=== PATIENT | male | born 1940 | race Caucasian/White ===

== ENCOUNTER 2019-04-22 14:23 | Emergency (ER) | payer MEDICARE ==
[2019-04-22 14:47] LABS: ABS Eosinophils 0.2 10^3/ul (0-0.6); ABS Lymphocytes 0.9 10^3/ul (1.0-4.8); ABS Monocytes 0.6 10^3/ul (0-0.8); ABS Neutrophils 4.5 10^3/ul (1.5-7.7); Eosinophil % 3.6 %; Hematocrit 43 % (42-52); Lymphocyte % 14.5 %; Mean Corpuscular HGB Conc 35 g/dL (31-36); Mean Corpuscular Hemoglobin 33 pg (27-31); Mean Corpuscular Volume 95 fL (80-94); Mean Platelet Volume 8.8 fL (7.4-10.4); Platelet Count 178 10^3/uL (150-450); Red Blood Count 4.58 10^6 /uL (4.18-5.48); Red Cell Distribution Width 13 % (10-15); White Blood Count 6.2 10^3/uL (3.5-10.8)
[2019-04-22 15:02] LABS: Troponin I 0.01 ng/mL (<0.04)
[2019-04-22 15:15] LABS: Albumin 3.9 g/dL (3.2-5.2); Albumin/Globulin Ratio 1.6 (1-3); BUN/Creatinine Ratio 15.5 (8-20); Calcium 9.2 mg/dL (8.6-10.3); EGFR African American 64.7 (>60); EGFR Non-African American 53.5 (>60); Globulin 2.5 g/dL (2-4); Potassium 4.3 mmol/L (3.5-5.0); Total Bilirubin 0.5 mg/dL (0.2-1.0); Total Protein 6.4 g/dL (6.4-8.9)
--- NOTE | 2019-04-22 15:21 | ED ---
HPI Chest Pain - HPI Summary HPI Summary: 79 year old M presenting to [facility] accompanied by complains of intermittent episodes of occasional chest pain radiating across bilateral shoulders and to right elbow lasting 10-15 minutes. Patient states he had 2 episodes yesterday and 3 episodes today. Patient has no chest pain right now. The patient rates the pain 0/10 currently in severity. Patient states he "feels like a weakness in the shoulder muscles." Symptoms aggravated by nothing. Symptoms alleviated by nothing. Patient denies shortness of breath and bilateral leg pain. Patient has cardiac hx. Hx SC but patient states that his current symptoms are not similar to his previous SC. He has had several appointments in the last 6 months to have his symptoms checked. Last stress test was 5 years ago. Takes aspirin. - History of Current Complaint Chief Complaint: EDChestPainROMI Time Seen by Provider: 04/22/19 15:14 Hx Obtained From: Patient Onset/Duration: Still Present Timing: Intermittent, Lasting Minutes - 10-15 Current Severity: None Pain Intensity: 0 Pain Scale Used: 0-10 Numeric Chest Pain Radiates: Yes Chest Pain Radiates To:: Shoulder, Arm - right Aggravating Factor(s): Nothing Alleviating Factor(s): Nothing Associated Signs and Symptoms: Positive: Negative - leg pain. Negative: Shortness of Breath - Allergy/Home Medications Allergies/Adverse Reactions: Allergies Allergy/AdvReac Type Severity Reaction Status Date / Time No Known Allergies Allergy Verified 05/16/16 12:49 Home Medications: Home Medications Aspirin 81 mg CHEW TAB* 81 mg PO DAILY 04/22/19 [History Confirmed 04/22/19] Benazepril (NF) [Lotensin (NF)] 10 mg PO DAILY 04/22/19 [History Confirmed 04/22] Cholecalciferol (Vitamin D3) [Vitamin D3] 2,000 unit PO DAILY 04/22/19 [History Confirmed 04/22/19] Metoprolol Succinate XL TAB* [Toprol XL TAB*] 25 mg PO DAILY 04/22/19 [History Confirmed 04/22/19] Omeprazole CAP (NF) [Prilosec CAP* 20 MG] 20 mg PO DAILY 04/22/19 [History Confirmed 04/22/19] Rosuvastatin (NF) [Crestor (NF)] 10 mg PO DAILY 04/22/19 [History Confirmed ] Rosuvastatin (NF) [Crestor (NF)] 25 mg PO DAILY 04/22/19 [History Confirmed ] National Institutes Of Health - NIH Scale Level of Consciousness: Alert/Keenly Responsive Ask Patient the Month and His/Her Age: Both Correct Ask Pt to Open/Close Eyes and Filter Filler/Release Non-Paretic Hand: Both Correctly Best Gaze (Only Horizontal Eye Movement): Normal Visual Field Testing: No Visual Loss Facial Paresis-Pt to Smile & Close Eyes or Grimace Symmetry: Normal/Symmetrical Motor Function - Right Arm: No Drift-Holds 10 Seconds Motor Function - Left Arm: No Drift-Holds 10 Seconds Motor Function - Right Leg: No Drift-Holds 10 Seconds Motor Function - Left Leg: No Drift-Holds 10 Seconds Limb Ataxia-Must be out of Proportion to Weakness Present: Absent Sensory (Use Pinprick to Test Arms/Legs/Trunk/Face): Normal Best Language (Describe Picture, Name Items): No Aphasia Dysarthria (Read Several Words): Normal Extinction and Inattention: No Abnormality Total Score: 0 PMH/Surg Hx/FS Hx/Imm Hx Cardiovascular History: Reports: Hx Angioplasty, Hx Myocardial Infarction Sensory History: Reports: Hx Contacts or Glasses Opthamlomology History: Reports: Hx Contacts or Glasses - Cancer History Cancer Type, Location and Year: kidney cancer - Surgical History Surgery Procedure, Year, and Place: partial nephrectomy in 2013 for kidney cancer. knee surgery. stents Infectious Disease History: No Infectious Disease History: Denies: Traveled Outside the [place] in Last 30 Days - Family History Known Family History: Positive: Diabetes - Social History Alcohol Use: None Hx Substance Use: No Substance Use Type: Reports: None Hx Tobacco Use: No Smoking Status (MU): Never Smoked Tobacco Review of Systems Positive: Chest Pain Negative: Shortness Of Breath Musculoskeletal: Negative - bilateral leg pain All Other Systems Reviewed And Are Negative: Yes Physical Exam - Summary Physical Exam Summary: VITAL SIGNS: Reviewed. GENERAL: Patient is a well-developed and nourished MALE who is lying comfortable in the stretcher. Patient is not in any acute respiratory distress. HEAD AND FACE: No signs of trauma. No ecchymosis, hematomas or skull depressions. No sinus tenderness. EYES: PERRLA, EOMI x 2, No injected conjunctiva, no nystagmus. EARS: Hearing grossly intact. Ear canals and tympanic membranes are within normal limits. MOUTH: Oropharynx within normal limits. NECK: Supple, trachea is midline, no adenopathy, no JVD, no carotid bruit, no c- spine tenderness, neck with full ROM. CHEST: Symmetric, no tenderness at palpation. LUNGS: Clear to auscultation bilaterally. No wheezing or crackles. CVS: Regular rate and rhythm, S1 and S2 present, no murmurs or gallops appreciated. ABDOMEN: Soft, non-tender. No signs of distention. No rebound, no guarding, and no masses palpated. Bowel sounds are normal. EXTREMITIES: FROM in all major joints, no edema, no cyanosis or clubbing. NEURO: Alert and oriented x 3. No acute neurological deficits. Speech is normal and follows commands. SKIN: Dry and warm. NIH: 0 GCS: 15 Triage Information Reviewed: Yes Vital Signs On Initial Exam: Initial Vitals Temp Pulse Resp BP Pulse Ox 97.1 F 65 20 144/78 99 04/22/19 14:31 04/22/19 14:31 04/22/19 14:31 04/22/19 14:31 04/22/19 14:31 Vital Signs Reviewed: Yes Diagnostics - Vital Signs Vital Signs Temp Pulse Resp BP Pulse Ox 04/22/19 14:31 97.1 F 65 20 144/78 99 - Laboratory Lab Results: Lab Results 04/22/19 04/22/19 04/22/19 Range/Units 14:33 14:33 14:33 WBC 6.2 (3.5-10.8) 10^3/uL RBC 4.58 (4.18-5.48) 10^6 /uL Hgb 15.0 (14.0-18.0) g/dL Hct 43 (42-52) % MCV 95 H (80-94) fL MCH 33 H (27-31) pg MCHC 35 (31-36) g/dL RDW 13 (10-15) % Plt Count 178 (150-450) 10^3/uL MPV 8.8 (7.4-10.4) fL Neut % (Auto) 72.1 % Lymph % (Auto) 14.5 % [place] % (Auto) 9.3 % Eos % (Auto) 3.6 % Baso % (Auto) 0.5 % Absolute Neuts (auto) 4.5 (1.5-7.7) 10^3/ul Absolute Lymphs (auto) 0.9 L (1.0-4.8) 10^3/ul Absolute Monos (auto) 0.6 (0-0.8) 10^3/ul Absolute Eos (auto) 0.2 (0-0.6) 10^3/ul Absolute Basos (auto) 0.0 (0-0.2) 10^3/ul Absolute Nucleated RBC 0.0 10^3/ul Nucleated RBC % 0.0 INR (Anticoag Therapy) 1.00 (0.82-1.09) Sodium 135 (135-145) mmol/L Potassium 4.3 (3.5-5.0) mmol/L Chloride 104 (101-111) mmol/L Carbon Dioxide 25 (22-32) mmol/L Anion Gap 6 (2-11) mmol/L BUN 20 (6-24) mg/dL Creatinine 1.29 H (0.67-1.17) mg/dL Est GFR ( Amer) 64.7 (>60) Est GFR (Non-Af Amer) 53.5 (>60) BUN/Creatinine Ratio 15.5 (8-20) Glucose 108 H (70-100) mg/dL Calcium 9.2 (8.6-10.3) mg/dL Total Bilirubin 0.50 (0.2-1.0) mg/dL AST 19 (13-39) U/L ALT 15 (7-52) U/L Alkaline Phosphatase 47 (34-104) U/L Troponin I 0.01 (<0.04) ng/mL Total Protein 6.4 (6.4-8.9) g/dL Albumin 3.9 (3.2-5.2) g/dL Globulin 2.5 (2-4) g/dL Albumin/Globulin Ratio 1.6 (1-3) Result Diagrams: 04/22/19 14:33 04/22/19 14:33 Lab Statement: Any lab studies that have been ordered have been reviewed, and results considered in the medical decision making process. - Radiology Chest x-ray Radiology Interpretation Completed By: Radiologist Summary of Radiographic Findings: Acute cardiopulmonary process by radiograph. ED physician has reviewed this report. - EKG 1426 Cardiac Rate: NL EKG Rhythm: Sinus Rhythm EKG Comparison: No Significant Change - similar to previous done on 05/16/16 Summary of EKG Findings: Sinus rhythm [address] elevations. Similar to previous EKG done on 05/16/16 Re-Evaluation - Re-Evaluation First Eval Re-Evaluation Time: 18:18 Comment: patient updated on plan of care. he is agreeable to discharge Chest Pain Course/Dx - Course Assessment/Plan: 79 year old M presenting to [facility] accompanied by complains of intermittent episodes of occasional chest pain radiating across bilateral shoulders and to right elbow lasting 10-15 minutes. Patient states he had 2 episodes yesterday and 3 episodes today. Patient has no chest pain right now. The patient rates the pain 0/10 currently in severity. Patient states he "feels like a weakness in the shoulder muscles." Symptoms aggravated by nothing. Symptoms alleviated by nothing. Patient denies shortness of breath and bilateral leg pain. Patient has cardiac hx. Hx SC but patient states that his current symptoms are not similar to his previous SC. He has had several appointments in the last 6 months to have his symptoms checked. Last stress test was 5 years ago. Takes aspirin. Blood work without any significant abnormality except for creatinine 1.29 which is actually improved from a previous creatinine. Glucose is 108, and first troponin is 0.01. EKG shows a normal sinus rhythm without any limitations. Second troponin after 4 hours and also 0.00. Therefore believe that the patient doesnt have any acute coronary syndrome at this point. The patient requested to give a prescription for nitroglycerin. The patient will be discharged home with follow-up with PCP. Patient was recommended to return to the emergency department if develops any other symptom. The patient understands and agrees. - Diagnoses Provider Diagnoses: Atypical chest pain Discharge - Sign-Out/Discharge Documenting (check all that apply): Patient Departure - Discharge Patient Received Moderate/Deep Sedation with Procedure: No - Discharge Plan Condition: Stable Disposition: HOME Prescriptions: Nitroglycerin TAB 0.4 MG* 0.4 mg SL Q5M PRN #50 tab PRN Reason: Angina Patient Education Materials: Chest Pain (ED) Referrals: [facility] [Outside] - 3 Days Additional Instructions: Follow up with [facility] in 3 days. Return to the Emergency Department for new or worsening symptoms. - Billing Disposition and Condition Condition: STABLE Disposition: Home - Attestation Statements Document Initiated by Scribe: Yes Documenting Scribe: Freda Norman Provider For Whom Scribe is Documenting (Include Credential): Pio Dhillon MD Scribe Attestation: I, Freda Norman, scribed for Pio Dhillon MD on 04/22/19 at 1838. Scribe Documentation Reviewed: Yes Provider Attestation: The documentation as recorded by the [email or web address] accurately reflects the service I personally performed and the decisions made by me, Pio Dhillon MD Status of Scribe Document: Viewed
[2019-04-22 18:31] VITALS: BP 126/89
== END 2019-04-22 18:30 | disposition home or self-care (01) ==
LOC: ED 14:23
DX: R07.89 Other chest pain (principal); I25.2 Old myocardial infarction; Z79.82 Long term (current) use of aspirin; Z79.899 Other long term (current) drug therapy
CPT/HCPCS: 36415; 71046; 80053; 82550; 84484; 85025; 85610; 93005; 99283